=== PATIENT | female | born 1940 | race Caucasian/White ===

== ENCOUNTER 2020-08-08 12:33 | Outpatient (REF) | payer MEDICARE, SELFPAY ==
[2020-08-08 14:48] LABS: Vitamin B12 342 pg/mL (200-900)
[2020-08-09 05:16] LABS: Lyme Abs Screen <0.90 index
[2020-08-09 08:44] LABS: Syphilis Screen Nonreactive (Nonreactive)
== END 2020-08-08 12:34 | disposition home or self-care (01) ==
LOC: HO.LAB 12:33
PROVIDERS: Visit Provider Psychiatry & Neurology Neurology
DX: G30.9 Alzheimer's disease, unspecified (principal)
CPT/HCPCS: 36415; 82607; 86617; 86618; 86780